=== PATIENT | male | born 1985 | race African-American/Black ===

== ENCOUNTER 2016-12-21 06:01 | Emergency (ER) | payer MEDICAID ==
[~2016-12-21] VITALS: Ht 172.7 cm; Wt 83.0 kg
[~2016-12-21 06:01] MED LIST: MESA800T PO
[2016-12-21] MEDS ORDERED: MORPHINE SULFATE 4 MG/ML CPJ (NOT FOR IM USE) IV STA (06:22)
[2016-12-21] MEDS ORDERED: ONDANSETRON HCL 4MG/2ML VIAL IV STA (06:22)
[2016-12-21] MEDS ORDERED: SODIUM CHLORIDE 0.9% 1000ML BAG (SEPSIS BOLUS) IV ONE (06:30)
[2016-12-21 07:10] LABS: CLARITY URINE CLEAR (CLEAR); COLOR URINE YELLOW (YELLOW); GLUCOSE URINE NEGATIVE (NEGATIVE); KETONES URINE NEGATIVE (NEGATIVE); LEUKOCYTE ESTERASE URINE TRACE (NEGATIVE); NITRITE URINE NEGATIVE (NEGATIVE); OCCULT BLOOD URINE 3+ (NEGATIVE); PH URINE 6.5 (4.5-8.0); PROTEIN URINE TRACE (NEGATIVE); SPECIFIC GRAVITY URINE 1.024 (1.005-1.030); UROBILINOGEN URINE 0.2 E.U./dL (0.2-1.0)
[2016-12-21 07:26] LABS: BASOPHILS % 0.4 % (0.0-2.0); EOSINOPHILS % 3.1 % (0.0-5.0); HEMATOCRIT. 41.9 % (42.0-52.0); HEMOGLOBIN. 14.1 g/dL (14.0-18.0); LYMPHOCYTES % 26.4 % (20.0-50.0); MEAN CORPUSCULAR HEMOGLOBIN 31.2 pg (28.0-32.0); MEAN CORPUSCULAR VOLUME 92.9 fL (80.0-94.0); MEAN PLATELET VOLUME 7.6 fl (7.4-10.4); MONOCYTES % 9.8 % (2.0-8.0); NEUTROPHILS % 60.3 % (40.0-76.0); PLATELET 171 x1000/uL (130-400); RED BLOOD CELL COUNT 4.51 mill/uL (4.7-6.1); RED CELL DISTRIBUTION WIDTH 14.1 % (11.6-14.6)
[2016-12-21 07:27] LABS: PROTHROMBIN TIME 10.8 sec (9.4-11.6)
[2016-12-21 07:29] LABS: *AMPHETAMINES SCREEN URINE NEGATIVE (NEGATIVE); *BARBITURATES SCREEN URINE NEGATIVE (NEGATIVE); *BENZODIAZEPINES SCREEN URINE NEGATIVE (NEGATIVE); *COCAINE SCREEN URINE NEGATIVE (NEGATIVE); CANNABINOID URINE SCREEN PRESUMTIVE POSITIVE (NEGATIVE); METHADONE URINE SCREEN NEGATIVE (NEGATIVE); OPIATES URINE SCREEN PRESUMTIVE POSITIVE (NEGATIVE); PHENCYCLIDINE URINE SCREEN NEGATIVE (NEGATIVE)
[2016-12-21 07:32] LABS: CARBON DIOXIDE 26 mEq/L (21-32); CHLORIDE 109 mEq/L (98-107)
[2016-12-21 07:36] LABS: ETHANOL BLOOD < 10 mg/dL
[2016-12-21] MEDS ORDERED: CEFTRIAXONE 1 G PREMIX 50 ML IV ONE (07:45)
[2016-12-21] MEDS ORDERED: TAMSULOSIN HCL 0.4MG SR CAPSULE PO ONE (07:45)
[2016-12-21] MEDS ORDERED: KETOROLAC 30MG/ML VIAL IV ONE (07:45)
[2016-12-21 09:20] VITALS: BP 107/66
== END 2016-12-21 09:23 | disposition home or self-care (01) ==
LOC: ER 06:01
DX: N39.0 Urinary tract infection, site not specified (principal); N20.0 Calculus of kidney; R03.0 Elevated blood-pressure reading, without diagnosis of hypertension; Z91.048 Other nonmedicinal substance allergy status
CPT/HCPCS: 36415; 51702; 71010; 74176; 80053; 80305; 81001; 83605; 83690; 85025; 85610; 86850; 86900; 86901; 87040; 87086; 93005; 96361; 96365; 96375; 99285; G0482; J0696; J1885; J2270; J2405; J7030; Z7610; A4315

== ENCOUNTER 2016-12-22 11:00 | Emergency (ER) | payer MEDICAID ==
[~2016-12-22] VITALS: Ht 185.4 cm; Wt 84.0 kg
[2016-12-22] MEDS ORDERED: MORPHINE SULFATE 4 MG/ML CPJ (NOT FOR IM USE) IV ONE ×2 (12:15→13:15)
[2016-12-22] MEDS ORDERED: ONDANSETRON HCL 4MG/2ML VIAL IV ONE (12:15)
[2016-12-22 12:40] LABS: BASOPHILS % 0.3 % (0.0-2.0); EOSINOPHILS % 2.2 % (0.0-5.0); HEMATOCRIT. 41.2 % (42.0-52.0); LYMPHOCYTES % 22.2 % (20.0-50.0); MEAN CORPUSCULAR HEMOGLOBIN 31.5 pg (28.0-32.0); MEAN PLATELET VOLUME 7.1 fl (7.4-10.4); MONOCYTES % 11.3 % (2.0-8.0); PLATELET 160 x1000/uL (130-400); RED BLOOD CELL COUNT 4.43 mill/uL (4.7-6.1); RED CELL DISTRIBUTION WIDTH 14.3 % (11.6-14.6)
[2016-12-22 12:47] LABS: CHLORIDE 107 mEq/L (98-107); CLARITY URINE CLOUDY (CLEAR); COLOR URINE YELLOW (YELLOW); GLUCOSE URINE NEGATIVE (NEGATIVE); KETONES URINE NEGATIVE (NEGATIVE); LEUKOCYTE ESTERASE URINE 2+ (NEGATIVE); NITRITE URINE NEGATIVE (NEGATIVE); OCCULT BLOOD URINE 3+ (NEGATIVE); PH URINE 5.5 (4.5-8.0); PROTEIN URINE 1+ (NEGATIVE); SPECIFIC GRAVITY URINE 1.017 (1.005-1.030); UROBILINOGEN URINE 0.2 E.U./dL (0.2-1.0)
[2016-12-22 12:55] LABS: CARBON DIOXIDE 26 mEq/L (21-32)
[2016-12-22 15:23] VITALS: BP 143/88
== END 2016-12-22 15:52 | disposition home or self-care (01) ==
LOC: ER 11:44
DX: N39.0 Urinary tract infection, site not specified (principal); K50.90 Crohn's disease, unspecified, without complications; Z98.890 Other specified postprocedural states; Z91.041 Radiographic dye allergy status
CPT/HCPCS: 36415; 51702; 80053; 81001; 85025; 87040; 96374; 96375; 96376; 99284; J2270; J2405; Z7610; A4315